=== PATIENT | male | born 2000 | race Caucasian/White ===

== ENCOUNTER 2024-03-18 19:34 | Emergency (ER) | payer OTHER ==
[~2024-03-18] VITALS: Ht 167.6 cm; Wt 69.0 kg
[2024-03-18 19:53] VITALS: TEMP 98.4; O2SAT 100
[2024-03-18] MEDS: ACETAMINOPHEN 325MG TABLET PO ONE (21:00)
[2024-03-18] MEDS ORDERED: TOPUD MT (21:06)
[2024-03-18 22:07] VITALS: BP 136/88; PULSE 65; RESP 18; O2SAT 100
== END 2024-03-18 22:07 | disposition home or self-care (01) ==
LOC: ER 19:34
DX: M54.6 Pain in thoracic spine (principal)
CPT/HCPCS: 99282